=== PATIENT | male | born 1970 | race Caucasian/White ===

== ENCOUNTER 2017-01-06 04:37 | Emergency (ER) | payer MEDICAID ==
[~2017-01-06] VITALS: Ht 167.6 cm; Wt 75.7 kg
[2017-01-06] MEDS ORDERED: BUPR-86 PO (05:00)
[2017-01-06] MEDS ORDERED: HYDR25CA PO (05:00)
[2017-01-06] MEDS ORDERED: LORazepam 1MG TABLET ONE (05:11)
[2017-01-06] MEDS ORDERED: LORazepam 1MG TABLET PO ONE (05:30)
[2017-01-06 07:11] VITALS: BP 132/94
== END 2017-01-06 07:13 | disposition home or self-care (01) ==
LOC: ED 05:12
DX: F41.1 Generalized anxiety disorder (principal); E78.00 Pure hypercholesterolemia, unspecified; J45.909 Unspecified asthma, uncomplicated
CPT/HCPCS: 99284

== ENCOUNTER 2017-01-08 19:27 | Emergency (ER) | payer MEDICAID ==
[~2017-01-08] VITALS: Ht 165.1 cm; Wt 72.7 kg
[~2017-01-08 19:27] MED LIST: BUPR-86 PO; HYDR25CA PO
[2017-01-08 19:29] VITALS: BP 132/90
[2017-01-08] MEDS ORDERED: LORazepam 1MG TABLET PO ONE (20:00)
[2017-01-08] MEDS ORDERED: LORazepam 1MG TABLET ONE (20:16)
== END 2017-01-08 20:39 | disposition home or self-care (01) ==
LOC: ED 20:15
DX: F41.1 Generalized anxiety disorder (principal); J45.909 Unspecified asthma, uncomplicated
CPT/HCPCS: 99284

== ENCOUNTER 2017-02-02 22:13 | Emergency (ER) | payer MEDICAID ==
[~2017-02-02] VITALS: Ht 162.6 cm; Wt 72.8 kg
[2017-02-02 22:15] VITALS: BP 137/101
[2017-02-02] MEDS ORDERED: LORA-445 PO (22:41)
[2017-02-02] MEDS ORDERED: LORazepam 1MG TABLET ONE (23:17)
[2017-02-02] MEDS ORDERED: LORazepam 1MG TABLET PO ONE (23:30)
== END 2017-02-02 23:38 | disposition home or self-care (01) ==
LOC: ED 22:49
DX: F41.1 Generalized anxiety disorder (principal); E78.00 Pure hypercholesterolemia, unspecified; F17.200 Nicotine dependence, unspecified, uncomplicated; J45.909 Unspecified asthma, uncomplicated
CPT/HCPCS: 99283

== ENCOUNTER 2017-02-24 09:45 | Emergency (ER) | payer MEDICAID ==
[~2017-02-24] VITALS: Ht 165.1 cm; Wt 75.8 kg
[~2017-02-24 09:45] MED LIST changes: +LORA-445 PO
[2017-02-24 09:53] VITALS: BP 127/92
[2017-02-24] MEDS ORDERED: hydrOXYzine 50 MG/ML IM PRN (10:30)
== END 2017-02-24 10:32 | disposition home or self-care (01) ==
LOC: ED 10:26
DX: F41.1 Generalized anxiety disorder (principal); J45.909 Unspecified asthma, uncomplicated; E78.00 Pure hypercholesterolemia, unspecified
CPT/HCPCS: 99284

== ENCOUNTER 2017-12-10 17:15 | Emergency (ER) | payer MEDICAID ==
[~2017-12-10] VITALS: Ht 167.6 cm; Wt 80.6 kg
[2017-12-10] MEDS ORDERED: MAALOX/HYOSCYAMINE/LIDOCAINE 45 ML BTL PO ONE (19:00)
[2017-12-10 19:14] LABS: MICROSCOPIC NOT IND
[2017-12-10 19:18] LABS: CULTURE INDICATED? NO
[2017-12-10 19:27] LABS: BASOPHILS # (AUTO) 0.03 x10^3/uL (0-0.1); BASOPHILS % (AUTO) 0 % (0-1); EOSINOPHILS # (AUTO) 0.09 x10^3/uL (0-0.4); EOSINOPHILS % (AUTO) 1 % (1-7); LYMPHOCYTES # (AUTO) 1.32 x10^3/uL (1-3.4); LYMPHOCYTES % (AUTO) 14 % (22-44); MD NO; MEAN CORPUSCULAR HEMOGLOBIN 30.4 pg (27.5-34.5); MEAN CORPUSCULAR HGB CONC 34.6 g/dL (33.2-36.2); MEAN CORPUSCULAR VOLUME 87.8 fL (81-97); MEAN PLATELET VOLUME 8.8 fL (7.4-10.4); MONOCYTES # (AUTO) 0.58 x10^3/uL (0.2-0.8); MONOCYTES % (AUTO) 6 % (2-9); NEUTROPHILS % (AUTO) 79 % (42-75); PLATELET COUNT 199 x10^3/uL (130-400); RED BLOOD COUNT 5.53 x10^6/uL (4.38-5.82)
[2017-12-10 19:39] LABS: ALBUMIN 4.4 g/dL (3.4-5.0); ANION GAP 7 mmol/L (5-15); CALCIUM 9.2 mg/dL (8.5-10.1); CHLORIDE 110 mmol/L (98-107)
[2017-12-10 19:44] LABS: ALANINE AMINOTRANSFERASE 46 U/L (12-78); ALKALINE PHOSPHATASE 99 U/L (45-117); BILIRUBIN,TOTAL 0.5 mg/dL (0.2-1.0); CREATININE 1.06 mg/dL (0.7-1.3); TOTAL PROTEIN 8.1 g/dL (6.4-8.2); TROPONIN I < 0.015 ng/mL (0.000-0.045)
[2017-12-10] MEDS ORDERED: LORazepam 1MG TABLET PO ONE (20:30)
[2017-12-10] MEDS ORDERED: LORazepam 1MG TABLET ONE (21:09)
[2017-12-10 21:25] VITALS: BP 140/95
== END 2017-12-10 21:30 | disposition home or self-care (01) ==
LOC: ED 19:01
DX: R07.89 Other chest pain (principal); F41.1 Generalized anxiety disorder; F17.200 Nicotine dependence, unspecified, uncomplicated; E78.00 Pure hypercholesterolemia, unspecified; F20.9 Schizophrenia, unspecified
CPT/HCPCS: 36415; 71045; 80053; 81003; 83690; 84484; 85025; 93005; 99285

== ENCOUNTER 2018-02-07 22:02 | Emergency (ER) | payer MEDICAID ==
[~2018-02-07] VITALS: Ht 160 cm; Wt 78.3 kg
[2018-02-07] MEDS ORDERED: CITA10TA4 PO (22:43)
[2018-02-07] MEDS ORDERED: BENZ1TAB61 PO (22:43)
[2018-02-07] MEDS ORDERED: BUSP30TA PO (22:43)
[2018-02-07] MEDS ORDERED: DIPHENHYDRAMINE 50 MG CAPSULE ONE (22:58)
[2018-02-07] MEDS ORDERED: DIPHENHYDRAMINE 50 MG CAPSULE PO ONE (23:00)
[2018-02-07] MEDS ORDERED: IBUPROFEN 200 MG TABLET ONE (23:22)
[2018-02-07] MEDS ORDERED: IBUPROFEN 200 MG TABLET PO ONE (23:30)
[2018-02-08 00:24] VITALS: BP 122/84
== END 2018-02-08 00:29 | disposition home or self-care (01) ==
LOC: ED 23:59
DX: R07.0 Pain in throat (principal); R11.0 Nausea; F41.1 Generalized anxiety disorder; J45.909 Unspecified asthma, uncomplicated; E78.00 Pure hypercholesterolemia, unspecified; F20.9 Schizophrenia, unspecified
CPT/HCPCS: 99283; Q0177

== ENCOUNTER 2018-02-15 21:34 | Emergency (ER) | payer MEDICAID ==
[~2018-02-15] VITALS: Ht 152.4 cm; Wt 79.5 kg
[~2018-02-15 21:34] MED LIST changes: +BENZ1TAB61 PO; +BUSP30TA PO; +CITA10TA4 PO
[2018-02-15] MEDS ORDERED: ONDANSETRON ODT 4 MG ONE (22:52)
[2018-02-15] MEDS ORDERED: LORazepam 1MG TABLET ONE (22:52)
[2018-02-15 23:00] LABS: BASOPHILS # (AUTO) 0.04 x10^3/uL (0-0.1); BASOPHILS % (AUTO) 1 % (0-1); EOSINOPHILS # (AUTO) 0.06 x10^3/uL (0-0.4); EOSINOPHILS % (AUTO) 1 % (1-7); LYMPHOCYTES # (AUTO) 1.56 x10^3/uL (1-3.4); LYMPHOCYTES % (AUTO) 17 % (22-44); MD NO; MEAN CORPUSCULAR HEMOGLOBIN 30.8 pg (27.5-34.5); MEAN CORPUSCULAR HGB CONC 34.9 g/dL (33.2-36.2); MEAN CORPUSCULAR VOLUME 88.2 fL (81-97); MEAN PLATELET VOLUME 8.5 fL (7.4-10.4); MONOCYTES # (AUTO) 0.77 x10^3/uL (0.2-0.8); MONOCYTES % (AUTO) 8 % (2-9); NEUTROPHILS # (AUTO) 6.81 x10^3/uL (1.8-6.8); NEUTROPHILS % (AUTO) 74 % (42-75); PLATELET COUNT 198 x10^3/uL (130-400); RED BLOOD COUNT 5.01 x10^6/uL (4.38-5.82); RED CELL DISTRIBUTION WIDTH 12.8 % (9.4-14.8)
[2018-02-15] MEDS ORDERED: ONDANSETRON ODT 4 MG PO ONE (23:00)
[2018-02-15] MEDS ORDERED: LORazepam 1MG TABLET PO ONE (23:00)
[2018-02-15 23:11] LABS: ALANINE AMINOTRANSFERASE 54 U/L (12-78); ALBUMIN 3.9 g/dL (3.4-5.0); ANION GAP 6 mmol/L (5-15); CALCIUM 8.9 mg/dL (8.5-10.1); CHLORIDE 112 mmol/L (98-107); CREATININE 1.04 mg/dL (0.7-1.3)
[2018-02-15 23:15] LABS: ALKALINE PHOSPHATASE 101 U/L (45-117); BILIRUBIN,TOTAL 0.3 mg/dL (0.2-1.0); TOTAL PROTEIN 7.3 g/dL (6.4-8.2); TROPONIN I < 0.015 ng/mL (0.000-0.045)
[2018-02-16] LABS: MICROSCOPIC NOT IND
[2018-02-16 00:12] LABS: CULTURE INDICATED? NO
[2018-02-16 00:39] VITALS: BP 121/74
== END 2018-02-16 00:43 | disposition home or self-care (01) ==
LOC: ED 22:22
DX: R10.13 Epigastric pain (principal); F41.1 Generalized anxiety disorder; R11.2 Nausea with vomiting, unspecified; E78.00 Pure hypercholesterolemia, unspecified; E78.5 Hyperlipidemia, unspecified
CPT/HCPCS: 36415; 80053; 81003; 83690; 84484; 85025; 93005; 99285; Q0162

== ENCOUNTER 2018-03-04 21:04 | Emergency (ER) | payer MEDICAID ==
[~2018-03-04] VITALS: Ht 160 cm; Wt 77.4 kg
[2018-03-04 21:06] VITALS: BP 143/91
[2018-03-04] MEDS ORDERED: LORazepam 1MG TABLET ONE (21:39)
[2018-03-04] MEDS ORDERED: LORazepam 1MG TABLET PO ONE (22:00)
== END 2018-03-04 22:09 | disposition home or self-care (01) ==
LOC: ED 21:53
DX: F41.1 Generalized anxiety disorder (principal); F41.0 Panic disorder [episodic paroxysmal anxiety]; E78.5 Hyperlipidemia, unspecified; Z87.891 Personal history of nicotine dependence
CPT/HCPCS: 99284

== ENCOUNTER 2018-04-25 14:18 | Emergency (ER) | payer MEDICAID ==
[~2018-04-25] VITALS: Ht 160 cm; Wt 77.7 kg
[2018-04-25 14:21] VITALS: BP 127/90
== END 2018-04-25 15:10 | disposition home or self-care (01) ==
LOC: ED 14:32
DX: F20.9 Schizophrenia, unspecified (principal); E78.5 Hyperlipidemia, unspecified; E78.00 Pure hypercholesterolemia, unspecified; F41.1 Generalized anxiety disorder; Z87.891 Personal history of nicotine dependence
CPT/HCPCS: 82962; 99281; 99282

== ENCOUNTER 2020-11-20 15:37 | Emergency (ER) | payer MEDICAID ==
[~2020-11-20] VITALS: Ht 160 cm; Wt 83.2 kg
[~2020-11-20 15:37] MED LIST changes: +ATOR40TA78 PO; +HYDR50TA99 PO
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
--- NOTE | 2020-11-20 16:40 | NUR ---
ERP KIARA AT BEDSIDE FOR INITIAL ASSESSMENT.
--- NOTE | 2020-11-20 17:30 | NUR ---
laceration irrigated by edt, awaiting md recheck
--- NOTE | 2020-11-20 18:12 | NUR ---
pt reassessed by ERP KIRT Mcdermott at bedside, crista applied x 2 to laceration by ERP. pt to have tylenol and discharge.
--- NOTE | 2020-11-20 18:14 | NUR ---
pt unsure of last tdap, erp notified.
[2020-11-20] MEDS ORDERED: ACETAMINOPHEN 500 MG TABLET ONE (18:27)
[2020-11-20] MEDS ORDERED: DIPH,PERTUSS(ACELL),TET VAC/PF 0.5 ML IM-VACC ONE ×2 (18:28→18:30)
[2020-11-20] MEDS ORDERED: ACETAMINOPHEN 500 MG TABLET PO ONE (18:30)
--- NOTE | 2020-11-20 18:34 | NUR ---
tdap admin, vaccine sheet given. tylenol admin per emar. pt tolerated well. pt to be discharged.
[2020-11-20 18:45] VITALS: BP 145/74
== END 2020-11-20 18:47 | disposition home or self-care (01) ==
LOC: ED 16:25
DX: S01.01XA Laceration without foreign body of scalp, initial encounter (principal); S50.12XA Contusion of left forearm, initial encounter; J45.909 Unspecified asthma, uncomplicated; V89.2XXA Person injured in unspecified motor-vehicle accident, traffic, initial encounter; Y93.89 Activity, other specified; Y92.009 Unspecified place in unspecified non-institutional (private) residence as the place of occurrence of the external cause; Y99.8 Other external cause status
CPT/HCPCS: 12001; 90471; 90715